=== PATIENT | female | born 1935 | race Caucasian/White ===

== ENCOUNTER 2019-05-26 12:51 | Emergency (ER) | payer MEDICARE ==
--- OUTSIDE RECORDS SUMMARY | 2019-05-26 13:04 | XMS REPORT | Continuity of Care Document ---
:1935 External Reference #:[id number] Author Name ASTON Godfrey (transmitted by agent of provider Bella Whiting) Address [address] [place] [address] Care Team Providers Name Role Phone Lai Pat DPM - Immigration Judge Care Team Information Activities Aide [phone] Hanny Fagan MD - Care Team Information Activities Aide [phone] Ophthalmology Kirt Wu MD - Cardiovascular Care Team Information Activities Aide Disease Problems Active Problems Provider Date Hyperlipidemia Onset: 02/19/2018 Essential hypertension Onset: 07/18/2012 Joint pain in right hand ASTON Godfrey Onset: 05/01/2018 Contusion of lower leg ASTON Godfrey Onset: 05/01/2018 Pain in limb ASTON Godfrey Onset: 05/01/2018 Sick sinus syndrome ASTON Godfrey Onset: 11/28/2018 Syncope ASTON Godfrey Onset: 11/28/2018 Social History Type Date Description Comments Sex Unknown ETOH Use Never used alcohol Tobacco Use Start: Unknown Patient has never smoked Recreational Drug Use Never Used Drugs Smoking Status Reviewed: 04/08/19 Patient has never smoked Exercise Type/Frequency Exercises rarely Allergies, Adverse Reactions, Alerts Description No Known Drug Allergies Medications Active Medications SIG Qnty Indications Ordering Provider Date B Complete once a day [place] 09/23/2012 Tablets MD Juan M Calcium 500 + D 1 by mouth once 60tabs [place] 09/23/2012 a day MD Juan M [id number] Tablets Aspirin Adult Low 1 by mouth every 90units [place] 12/14/2011 Strength day MD Juan M 81mg Chewtabs Vitamin D take 1 capsule 12caps 790.6 [place] 12/14/2011 (Ergocalciferol) by mouth once MD Juan M weekly 73759Nmal Capsules Evista 1 by mouth every 90tabs [place] 11/01/2011 60mg Tablets day MD Juan M Losartan Potassium 1 by mouth every 90tabs [place] 11/01/2011 50mg day MD Juan M Tablets Amlodipine Besylate one every day 90tabs [place] 5mg MD Juan M Tablets Immunizations CPT Code Status Date Vaccine Lot # [id number] Given 01/10/2019 Tdap - Tetanus/Diptheria/Acellular Pertussis 53169 Given 01/08/2019 Fluzone High Dose 93370 Given 01/03/2018 Fluzone High Dose 72678 Given 12/07/2016 Pneumococcal Conjugate Vaccine 13 Valent For Intramuscular Use 39405 Given 12/07/2016 Fluzone High Dose 87824 Given 12/04/2013 Fluzone High Dose 97884 Given 12/11/2012 Fluzone High Dose 08413 Given 11/29/2011 Fluzone High Dose 25529 Given 12/27/2010 Influenza Virus 3Yrs & Over 73235 Given 11/17/2008 Pneumonia Vaccine 51622 Given 11/17/2008 Influenza Virus 3Yrs & Over Vital Signs Date Vital Result Comment 04/08/2019 1:12pm BP Systolic 138 mmHg BP Diastolic 84 mmHg 04/08/2019 12:42pm Weight 158.50 lb BP Systolic Sitting 168 mmHg BP Diastolic Sitting 68 mmHg Results Description No Information Available Procedures Date Code Description Status 02/26/2019 286277769 Diabetic Foot Exam Completed 01/29/2019 076208026 Bone Mineral Density Test Completed 01/29/2019 77129312 Mammogram Completed 12/16/2018 229292813 Diabetic Foot Exam Completed 09/30/2018 445228889 Diabetic Foot Exam Completed 07/24/2018 690907592 Diabetic Foot Exam Completed 04/23/2018 886720169 Diabetic Foot Exam Completed 01/22/2018 231428708 Diabetic Foot Exam Completed 05/10/2016 840104200 Diabetic Retinal Eye Exam Completed Medical Devices Description No Information Available Encounters Type Date Location Provider Dx Diagnosis Office Visit 01/08/2019 [facility] ASTON Godfrey Z00.01 Encounter for 1:15p general adult medical exam w abnormal findings 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, bilateral Z12.31 Encntr screen mammogram for malignant neoplasm of breast Z78.0 Asymptomatic menopausal state Z23 Encounter for immunization I50.9 Heart failure, unspecified I10 Essential (primary) hypertension Office Visit 11/28/2018 1:15p [facility] ASTON Godfrey I10 Essential (primary) hypertension M81.8 Other osteoporosis without current pathological fracture E55.9 Vitamin D deficiency, unspecified S00.83xA Contusion of other part of head, initial encounter Assessments Date Code Description Provider 04/08/2019 I10 Essential (primary) hypertension ASTON Godfrey 04/08/2019 M81.8 Other osteoporosis without current pathological ASTON Godfrey fracture 04/08/2019 E78.5 Hyperlipidemia, unspecified ASTON Godfrey 04/08/2019 I49.5 Sick sinus syndrome ASTON Godfrey 01/08/2019 Z00.01 Encounter for general adult medical examination ASTON Godfrey with abnormal findings 01/08/2019 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, bilateral ASTON Godfrey 01/08/2019 Z12.31 Encounter for screening mammogram for malignant ASTON Godfrey neoplasm of breast 01/08/2019 Z78.0 Asymptomatic menopausal state ASTON Godfrey 01/08/2019 Z23 Encounter for immunization ASTON Godfrey 01/08/2019 I50.9 Heart failure, unspecified ASTON Godfrey 01/08/2019 I10 Essential (primary) hypertension ASTON Godfrey 11/28/2018 I10 Essential (primary) hypertension ASOTN Godfrey 11/28/2018 M81.8 Other osteoporosis without current pathological ASTON Godfrey fracture 11/28/2018 E55.9 Vitamin D deficiency, unspecified ASTON Godfrey 11/28/2018 S00.83xA Contusion of other part of head, initial encounter ASTON Godfrey Plan of Treatment Future Appointment(s):07/08/2019 1:00 pm - ASTON Godfrey at [facility] - VIDAL Godfrey Essential (primary) hypertensionFollow up: 7ytddjV52.8 Other osteoporosis without current pathological tafouuecL12.5 Hyperlipidemia, pqmjxbcasjeP94.5 Sick sinus syndrome Functional Status Functional Condition Comment Date Status Glasses Active Mental Status Description No Information Available Referrals Description No Information Available
[2019-05-26 13:28] VITALS: BP 145/75
--- NOTE | 2019-05-26 13:40 | UC ---
Respiratory Complaint HPI - HPI Summary HPI Summary: Pt presents with c/o cough, chest congestion, and nasal congestion X 4 days. - History of Current Complaint Chief Complaint: UCRespiratory Stated Complaint: FEVER,THROAT AND COUGH Time Seen by Provider: 05/26/19 13:34 Hx Obtained From: Patient ?: No Onset/Duration: Gradual Onset, Lasting Days, Still Present Timing: Constant Severity Initially: Mild Severity Currently: Mild Pain Intensity: 0 Character: Cough: Nonproductive Aggravating Factors: Deep Breaths, Recumbent Position Alleviating Factors: Nothing Associated Signs And Symptoms: Positive: URI, Nasal Congestion - Risk Factors Pulmonary Embolism Risk Factors: Negative Cardiac Risk Factors: Hypertension Pseudomonas Risk Factors: Negative Tuberculosis Risk Factors: Communal Living - Allergies/Home Medications Allergies/Adverse Reactions: Allergies Allergy/AdvReac Type Severity Reaction Status Date / Time No Known Allergies Allergy Verified 05/26/19 13:22 Home Medications: Home Medications Acetaminophen [Acetaminophen ER] 325 mg PO Q4H PRN 05/26/19 [History Confirmed 05/26/19] Aspirin EC TAB* [Ecotrin EC Low Dose 81 MG*] 81 mg PO DAILY 05/26/19 [History Confirmed 05/26/19] Benzonatate CAP* [Tessalon 100 MG CAP*] 100 mg PO TID PRN #30 cap 05/26/19 [Rx] Cholecalciferol TAB* [Vitamin D TAB*] 400 unit PO DAILY 05/26/19 [History Confirmed 05/26/19] Losartan Potassium [Cozaar] 50 mg PO DAILY 05/26/19 [History Confirmed 05/26/19] Raloxifene (NF) [Evista(NF)] 60 mg PO DAILY 05/26/19 [History Confirmed 05/26/19 ] Vitamin B Complex CAP* [B Complex CAP*] 1 cap PO DAILY 05/26/19 [History Confirmed 05/26/19] amLODIPine TAB* [Norvasc 5 mg TAB*] 5 mg PO DAILY 05/26/19 [History Confirmed ] guaiFENesin [Mucinex] 600 mg PO Q12H #14 tab.er.12h 05/26/19 [Rx] PMH/Surg Hx/FS Hx/Imm Hx Previously Healthy: Yes Cardiovascular History: Cardiac Disease, Hypertension - Surgical History Surgical History: Yes Surgery Procedure, Year, and Place: Bilateral Cataract Extractions; Pacemaker, 2014 - Family History Known Family History: Positive: Cardiac Disease - Social History Occupation: Retired Lives: Assisted Living Alcohol Use: None Substance Use Type: None Smoking Status (MU): Never Smoked Tobacco Have You Smoked in the Last Year: No - Immunization History Vaccination Up to Date: Yes Review of Systems All Other Systems Reviewed And Are Negative: Yes Constitutional: Positive: Negative Skin: Positive: Negative Eyes: Positive: Negative ENT: Positive: Sore Throat, Nasal Discharge, Sinus Congestion Respiratory: Positive: Cough Cardiovascular: Positive: Negative Gastrointestinal: Positive: Negative Genitourinary: Positive: Negative Motor: Positive: Negative Neurovascular: Positive: Negative Musculoskeletal: Positive: Negative Neurological/Mental Status: Positive: Negative Psychological: Positive: Negative Is Patient Immunocompromised?: No Physical Exam Triage Information Reviewed: Yes Appearance: Well-Appearing Vital Signs: Initial Vital Signs Temp 98.5 F 05/26/19 13:20 Pulse 73 05/26/19 13:20 Resp 20 05/26/19 13:20 BP 145/75 05/26/19 13:20 Pulse Ox 95 05/26/19 13:20 Vital Signs Reviewed: Yes Eye Exam: Normal ENT: Positive: Nasal congestion Dental Exam: Normal Neck exam: Normal Respiratory Exam: Normal Cardiovascular Exam: Normal Musculoskeletal Exam: Normal Neurological Exam: Normal Psychological Exam: Normal Skin Exam: Normal Respiratory Course/Dx - Differential Dx/Diagnosis Differential Diagnosis/HQI/PQRI: Bronchitis, Influenza Provider Diagnosis: Upper respiratory disease Discharge ED - Sign-Out/Discharge Documenting (check all that apply): Patient Departure All imaging exams completed and their final reports reviewed: No Studies - Discharge Plan Condition: Stable Disposition: HOME Prescriptions: Benzonatate CAP* [Tessalon 100 MG CAP*] 100 mg PO TID PRN #30 cap PRN Reason: Cough guaiFENesin [Mucinex] 600 mg PO Q12H #14 tab.er.12h Patient Education Materials: Viral Syndrome (ED) Referrals: Lotus Wen PA [Primary Care Provider] - If Needed - Billing Disposition and Condition Condition: STABLE Disposition: Home - Attestation Statements Provider Attestation: This patient was not seen by me. I was available for consult. Chart reviewed. TERRY
== END 2019-05-26 13:46 | disposition home or self-care (01) ==
LOC: UCCORT 12:51
DX: J39.9 Disease of upper respiratory tract, unspecified (principal); I10 Essential (primary) hypertension; Z79.899 Other long term (current) drug therapy; Z79.82 Long term (current) use of aspirin
CPT/HCPCS: 99212; G0463